=== PATIENT | female | born 1940 | race Two or more races ===

== ENCOUNTER 2024-08-15 09:25 | Day surgery (SDC) | payer OTHER, SELFPAY ==
--- NOTE | 2024-08-14 08:22 | EKG_ITS ---
[facility] Test Date: 2024-08-14 Pat Name: EMMANUEL GARZA Department: Room: - Gender: Female Compliance Attorney: HANNAH : 1940 Requested By: Armando Phillips Order Number: [id number] Reading MD: Armando Phillips Measurements Intervals Humphrey Rate: 59 P: 73 IA: 182 QRS: -4 QRSD: 81 T: 64 QT: 430 QTc: 428 Interpretive Statements SINUS BRADYCARDIA WITH SINUS ARRHYTHMIA No previous ECG available for comparison /[id number]
[2024-08-14 09:33] VITALS: BMI 21.8
[2024-08-14 12:35] LABS: Alanine Aminotransferase 11 U/L (10-49); Albumin, Serum 4.3 gm/dL (3.4-4.8); Albumin/Globulin Ratio 1.3 (1.2-2.2); Alkaline Phosphatase 43 U/L (46-116); Anion Gap 8 (7-16); Aspartate Amino Transferase 17 U/L (0-34); BUN/Creatinine Ratio 15 Ratio (12-20); Bilirubin,Total 0.7 mg/dL (0.3-1.2); Blood Urea Nitrogen 17 mg/dL (9-23); Calcium 9.6 mg/dL (8.3-10.6); Calcium (Corrected) 9.6 mg/dL (8.5-10.1); Chloride 104 mMol/L (98-107); Creatinine (Component) 1.1 mg/dL (0.6-1.3); Estimated Creatinine Clearance 31.7 mL/min (>60); Globulin 3.4 gm/dL (2.3-3.5); Glucose 167 mg/dL (74-106); Osmolality,Calculated 279 (275-295); Potassium 4.1 mMol/L (3.4-5.1); Sodium 137 mMol/L (136-145); Total Protein 7.7 gm/dL (5.7-8.2); eGFR 49 See Note
[2024-08-15] VITALS (8 sets, daily range): BP systolic 159–193; BP diastolic 67–100; PULSE 52–62; RESP 13–19; TEMP 36.2–36.7; O2SAT 97–100; BMI 21.7
[2024-08-15] MEDS: OXYMETAZOLINE NAS SPRY 0.05% 15 ML BTL NASAL (11:52)
[2024-08-15] MEDS: RINGERS LACTATED 1000 ML 1,000 ML 20 ML IV (11:54)
--- NOTE | 2024-08-15 13:01 | ESOP_ITS ---
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 Treatment options were discussed and we initially planned on a balloon dilation of the left maxillary sinus in the OR since she was not able to tolerate it in the office. Patient was aware of this and wished to proceed and understanding the risk and anticipated outcomes. Patient was marked in the preoperative setting and then transferred to the operative suite where she was anesthetized per LMA. The left nasal passageway was visualized with a 0 degree sinus scope. The middle turbinate was medialized with a [place] elevator and the maxillary sinus ostia located with the [employer] balloon sinus dilator. The dilator was inserted into the sinus and guidewire placed confirming its presence. The sinus ostia was inflated with the balloon and then the balloon deflated and removed. Small curved suction was placed in the sinus which time we noted there is allergic fungal sinus debris. The opening was expanded further with the through cut forceps and then the sinus irrigated and suction with warm saline. This was repeated until there was no further debris visualized. Debris was collected and sent for culture. Patient was awakened and taken to the recovery room in stable condition. Anesthesia other (General Per LMA) Pathology / specimen None Estimated Blood Loss 10 Surgeon Armando Caballero DO Surgical Staff Operation Date: 08/15/24 12:00 <No data on this case meets the specified criteria>
--- NOTE | 2024-08-15 13:02 | SUR.PHASEI ---
1302: Pt. AAOx4, vitals stable, breathing unlabored, no complaint of pain or nausea, dressing under nares CDI, no active bleed noted, report received from MD Nelson and Beni CRONIN.
--- NOTE | 2024-08-15 14:05 | SUR.PHASEII ---
1405: Pt. AAOx4, vitals stable, breathing unlabored, no complaint of pain or nausea, dressing below CDI, no active bleed noted, pt. tolerated bites of ice well, gave discharge instructions to the pt. and her ride, both verbalized understanding and had no further questions. Pt. left with all personal belongings.
== END 2024-08-15 14:05 | disposition home or self-care (01) ==
PROVIDERS: Referring Provider Otolaryngology; Visit Provider Otolaryngology
PROC: (CPT 31267; principal; 2024-08-15 11:45)
DX: J30.89 Other allergic rhinitis (principal); J32.0 Chronic maxillary sinusitis; Z01.810 Encounter for preprocedural cardiovascular examination; I10 Essential (primary) hypertension; K21.9 Gastro-esophageal reflux disease without esophagitis; J43.9 Emphysema, unspecified
CPT/HCPCS: 31267; 36415; 80053; 87070; 87075; 87077; 87186; 87205; 93005; J0690; J1100; J1885; J2405; J2704; J3010; J3490; J7120; A9270